=== PATIENT | female | born 1960 | race Caucasian/White ===

== ENCOUNTER 2020-05-26 02:49 | Emergency (ER) | payer OTHER ==
[~2020-05-26] VITALS: Ht 160 cm; Wt 68.0 kg
[~2020-05-26 02:49] MED LIST: GABA-532 PO; LURA40TA PO
--- NOTE | 2020-05-26 02:50 | NUR ---
PT AAOX4. BIBSELF C/O SI WITH PLAN TO RUN INTO TRAFFIC. DENEIS HI. PLACED IN GOWN, ON MONITOR, AND PULSE OX. VSS. PALCED IN BED 12, BELONINGS PLACED IN LOCKER. AWAITING MD FOR EVAL AND ORDERS.
--- NOTE | 2020-05-26 03:11 | NUR ---
URINE PROVIDED. SENT TO LAB.
--- NOTE | 2020-05-26 04:52 | NUR ---
Patient is resting comfortably in bed with eyes closed. Easily aroused. VSS
--- NOTE | 2020-05-26 06:12 | NUR ---
PT AWAKE, AMBULATED TO THE RESTROOM.
[2020-05-26] MEDS ORDERED: OLANZAPINE 5 MG TABLET PO ONE (06:30)
--- NOTE | 2020-05-26 07:42 | NUR ---
PATIENT IN BED ASLEEP, EASILY AROUSABLE BY VOICE. HOOKED TO MONITOR, VSS. SITTER AT BEDSIDE FOR SAFETY
--- NOTE | 2020-05-26 08:25 | NUR ---
CALLED EEG TECHNICIAN RACHAEL IS ON HER WAY DOWN.
[2020-05-26 08:26] LABS: CARBON DIOXIDE 28 mmol/L (21-32); CHLORIDE 99 mmol/L (98-107); POTASSIUM 3.3 mmol/L (3.5-5.1); SODIUM SERUM 134 mmol/L (136-145)
[2020-05-26 08:27] LABS: CALCIUM, SERUM 9.1 mg/dL (8.5-10.1); CREATININE 0.8 mg/dL (0.6-1.3); GLUCOSE 83 mg/dL (74-106); SALICYLATE < 0.2 mg/dL (2.8-20.0); UREA NITROGEN, BLOOD 23 mg/dL (7-18)
--- NOTE | 2020-05-26 08:36 | NUR ---
MAICO CONSULT: social worker assistant was called down to the ER to evaluate the pt as she came into the ER reporting suicidal ideation with a plan to jump in front of a car. Upon arrival, SW noted the pt was sitting on the edge of her bed, dressed in her clothing, carrying two plastic bags filled with her belongings, and carrying her crutches. Pt reported she was ready to leave. SW inquired about suicidal ideation immediately. Pt gave SW different answers ranging from, "I was last night, but I'm fine now. I will feel like killing myself tonight, or when I leave. I don't know. I want to jump in front of a car. I wanted to." SW inquired about safety planning and how the pt is planning to keep herself safe. Pt diverted the conversation by calling SW "nice." SW inquired about her current living situation. Pt reported she is currently homeless, living [place] the [place]. SW inquired about the way(s) pt needs her basic needs (food, clothing, group home). Pt diverted the conversation once again and stated, I smoke a lot of crack, so I dont really need to eat. SW inquired about voluntary psychiatric placement at [facility] to address her ongoing suicidal ideation. At this point, the pt stated to MAICO, Ill make a deal with you. I will go to the [facility] if I can go outside and smoke a cigarette. MAICO informed the pt that SW could not allow pt to go outside to smoke. At this point, the pt began to walk away towards the exit. MAICO informed ALENA Jenkins that the pt was not cleared to leave as she was endorsing suicidal ideation. The pt was redirected back to her bed by ALENA Jenkins and . The pt proceeded to lock herself in the restroom for approximately 10 minutes. Shortly after, pts sitter/CN A discovered the pt was smoking in the restroom. ALENA Jenkins instructed the pt to return to her bed. The pt became combative and was placed in two-point restraints. Her belonging were taken (bags of clothing, crutches) and stored. MAICO informed ALENA Jenkins that the on-call licensed clinician will be called for further evaluation and possible 5150 hold.
--- NOTE | 2020-05-26 09:36 | NUR ---
PATIENT IN BED ASLEEP, EASILY AROUSABLE BY VOICE. HOOKED TO MONITOR, VSS. SITTER AT BEDSIDE FOR SAFETY
--- NOTE | 2020-05-26 09:36 | NUR ---
MAICO NOTE: MAICO contacted scheduled on-call clinician, Wilda ([phone]) for psychiatric evaluation at possible 5151 hold for DTS at 0851. MAICO left a voicemail for Wilda. MAICO consulted with Curing Supervisor, MARTHA Mcleod. Per Shani, the pt is appropriate for [facility], if she is agreeable. Shani will accompany MAICO to re-evaluate the pt after 1000.
[2020-05-26] MEDS ORDERED: LORAZEPAM INJ 2 MG/ML VIAL IM ONE (10:00)
[2020-05-26] MEDS ORDERED: HALOPERIDOL LACTATE INJ 5 MG/ML VIAL IM ONE (10:00)
[2020-05-26] MEDS ORDERED: diphenhydrAMINE HCL 50 MG/ML VIAL IM ONE (10:00)
--- NOTE | 2020-05-26 10:09 | NUR ---
MAICO NOTE: MAICO and Construction Equipment Mechanic Helper, MARTHA Mcleod visited the pt. The pt remained in two-point restraints, but was visibly de-escalated. MAICO and Shani asked the pt if she was willing to go to [facility] voluntarily; pt agreed. MAICO will contact on-call electric vehicle electrician and cancel the evaluation request. MAICO informed ALENA Jenkins of the plan. MAICO will fax clinicals to [facility] Intake ([phone]).
--- NOTE | 2020-05-26 11:38 | NUR ---
SW NOTE: Clinicals sent to [facility] intake ([phone]) for voluntary inpatient psychiatric placement. Endorsed to ALENA Jenkins.
--- NOTE | 2020-05-26 12:16 | NUR ---
PROVIDED W FOOD TRAY, TOLERATING PO WELL
--- NOTE | 2020-05-26 12:36 | NUR ---
MAICO NOTE: MAICO received a call from [facility] at [facility] Intake ([phone]) confirming acceptance for the pt to [facility]. Dr. Dumont & Dr. Looney (Photo Lab Manager) Oliva VANEGAS for report. Please contact: [phone] Endorsed to ALENA Jenkins.
[2020-05-26 12:44] LABS: BASOPHILS % (AUTO) 0.3 % (0.0-2.0); EOSINOPHILS % (AUTO) 4.2 % (0.0-6.0); HEMATOCRIT 28 % (33-45); HEMOGLOBIN 8.6 g/dL (11.5-14.8); LYMPHOCYTES # (AUTO) 1.8 /CMM (0.8-4.8); LYMPHOCYTES % (AUTO) 21.8 % (20.0-44.0); MEAN CORPUSCULAR HGB CONC 31 g/dl (31.0-36.0); MEAN CORPUSCULAR VOLUME 63 fL (82-100); MONOCYTES # (AUTO) 0.8 /CMM (0.1-1.30); MONOCYTES % (AUTO) 9.9 % (2.0-12.0); NEUTROPHILS # (AUTO) 5.2 /CMM (1.8-8.9); NEUTROPHILS % (AUTO) 63.8 % (43.0-81.0); PLATELET COUNT (AUTO) 310 /CMM (150-450); RED BLOOD CELL COUNT(AUTO) 4.45 MIL/uL (4.0-5.2); WHITE BLOOD COUNT (AUTO) 8.2 K/uL (4.3-11.0)
--- NOTE | 2020-05-26 12:44 | NUR ---
received a call from [facility] at [facility] Intake ([phone]) confirming acceptance for the pt to [facility]. Dr. Dumont & Dr. Looney (Coal Conveyor Operator) Oliva VANEGAS for report. Please contact: [phone]
--- NOTE | 2020-05-26 12:46 | NUR ---
MAICO NOTE: [facility] homeless resources related to COVID-19, substance use resources, and behavioral health resources left in pt's chart along with the Homeless Patient Waiver for the pt to sign upon discharge and transfer to [facility]. Endorsed to Иван Huffman. Addendum: 05/26/20 at 1249 by LORELEI NINA Pt unable to sign the document at this time due to her being in two-point restraints, and sleeping due to medication(s) administered.
[2020-05-26 12:47] LABS: APPEARANCE,URINE SL CLOUDY (CLEAR); BILIRUBIN,URINE SMALL (NEGATIVE); BLOOD, URINE NEGATIVE Ery/uL (NEGATIVE); KETONES,URINE 15 (NEGATIVE); LEUKOCYTE ESTERASE ,URINE NEGATIVE (NEGATIVE); NITRITE, URINE NEGATIVE (NEGATIVE); PROTEIN,URINE TRACE mg/dl (NEGATIVE); UGLUCOSE NEGATIVE (NEGATIVE); UROBILINOGEN,URINE 0.2 EU/dL (0.2)
[2020-05-26 12:54] LABS: BACTERIA,URINE Few /HPF (None Seen); SQUAMOUS EPITHELIAL CELL,UR Moderate /HPF (None Seen)
[2020-05-26 12:55] LABS: COLOR,URINE DARK YELLO (YELLOW)
[2020-05-26 12:56] LABS: RBC,URINE 0-2 /HPF (0-2)
--- NOTE | 2020-05-26 14:08 | NUR ---
CALLED [id number] [phone] WILL CONTACT US WITH REF #[id number] ETA 45MINS [facility]. IF ANY ISSUES PLEASE CALL [phone]
--- NOTE | 2020-05-26 15:00 | NUR ---
Patient picked up by [facility] in stable condition. Clinicals provided to EMS to be provided to [facility].
[2020-05-26 15:01] VITALS: BP 122/86
== END 2020-05-26 15:19 ==
LOC: ER 02:49
DX: R45.851 Suicidal ideations (principal); I10 Essential (primary) hypertension; J44.9 Chronic obstructive pulmonary disease, unspecified; F32.9 Major depressive disorder, single episode, unspecified; F17.200 Nicotine dependence, unspecified, uncomplicated; Z59.0 Homelessness; Z79.899 Other long term (current) drug therapy
CPT/HCPCS: 36415; 80048; 80305; 80329; 81001; 85025; 87086; 96372 ×2; 99285; J1200; J1630; J2060; 81000-TC; G0480

== ENCOUNTER 2020-07-14 09:53 | Emergency (ER) | payer OTHER ==
[~2020-07-14] VITALS: Ht 149.9 cm; Wt 75.3 kg
--- NOTE | 2020-07-14 10:15 | NUR ---
FROM STREET, C/O DIFFICULTY BREATHING X1 WEEK. PT AAOX4, VSS. RR EVEN & UNLABORED. DENIES CP, DIZZINESS, N/V AT THIS TIME. PT SEEN & EVAL'D BY DR. RAI. WILL CONT TO MONITOR.
[2020-07-14] MEDS: IPRATROPIUM NEB FS 0.5 MG/2.5 ML AMPUL.NEB NEB ONE (10:25)
[2020-07-14] MEDS: ALBUTEROL FS 2.5 MG/3 ML VIAL.NEB NEB ONE (10:25)
--- NOTE | 2020-07-14 10:25 | NUR ---
PT GETTING BREATHING TX, RESP THERAPIST @ BS.
[2020-07-14] MEDS ORDERED: IPRATROPIUM NEB FS 0.5 MG/2.5 ML AMPUL.NEB ONE (10:32)
[2020-07-14] MEDS ORDERED: ALBUTEROL FS 2.5 MG/3 ML VIAL.NEB ONE (10:32)
--- NOTE | 2020-07-14 10:44 | NUR ---
RT HHN TX GIVEN. PATIENT AWAKE, ALERT, NO SOB REPORTED. ON ROOM AIR. POST TX PATIENTS BREATH SOUNDS HAD AN INCREASE AERATION. LIO TX WELL.
--- NOTE | 2020-07-14 11:50 | NUR ---
NICHOLE, ENVIRONMENTAL SERVICES COORDINATOR @ BS FOR EVAL.
--- NOTE | 2020-07-14 12:26 | NUR ---
Patient discharged to home in stable condition. Written and verbal after care instructions given. Patient verbalizes understanding of instruction.
[2020-07-14 12:27] VITALS: BP 148/89
--- NOTE | 2020-07-14 15:57 | NUR ---
Patient is a 59 year-old woman who asked to speak with this SW. Patient wanted a referral to [facility]. This SW conducted assessment to learn more about the patient and responses to questions needed for [facility].
--- NOTE | 2020-07-14 15:59 | NUR ---
This SW contacted [facility] option 7 and spoke with Marilin. This SW gave information necessary to make a profile for the patient. Patient was placed on the waitlist as there are no current rooms available. This SW to inform the patient about this and provide homeless resources for the meantime.
--- NOTE | 2020-07-14 16:00 | NUR ---
This SW informed the patient she was placed on the [facility] waitlist. Patient was happy that she had been placed on the waitlist. Patient provided number for contact for [facility] . Patient accepted homeless resources including: Substance Abuse resources provided included: [facility] Substance Abuse Self-Helpline ([facility]) ; [facility] [address] [facility]. [place] [id number] ; [facility] [place] [address] [facility] [address] ; [facility] [address] [facility] [id number] ; [facility] [address] [facility] [phone] ; [facility] [address] [facility] [id number] ; [facility] [address] [facility] [id number] ; [facility]stance Abuse Helpline([facility])-[facility] ; [facility] ; [facility] [place]; [facility] [place]; [facility] [place]; [facility] [place]; [place]; [facility] [place]; [facility]. [place]; Alcoholics Anonymous -[facility]V; Cf-Tcgl-Bmjtlij ; Marijuana Anonymous -[facility]; Narcotics Anonymous www.na.org. Year-round shelters : [facility] [address] [place] [address] ; [facility] [place] [address] [place] [address]; [place] [facility] [address] [place] [facility] [phone] Hygiene: [facility]: [address] [place] ; [facility] [address] [facility] ; [facility] [place] [address] [place] . Food Resources: [place] [facility] at [facility]- [address] [place]; Meet Each Need wit Dignity ([facility]) [address] [facility]. [place]; [facility] [address] [facility]; [facility] [address] [facility] [address] [place] [facility]. Mental Health resources provided: [facility] [address] [place] [address] ; [facility] [address] [facility] [address], [place] [address] ; Sabiha Draper [facility] [address] [place] [address] ; [facility] [address] [place], [place] [id number]
== END 2020-07-14 12:30 | disposition home or self-care (01) ==
LOC: ER 09:55
DX: J44.9 Chronic obstructive pulmonary disease, unspecified (principal); F17.210 Nicotine dependence, cigarettes, uncomplicated; I10 Essential (primary) hypertension; F32.9 Major depressive disorder, single episode, unspecified; Z59.0 Homelessness; Z88.8 Allergy status to other drugs, medicaments and biological substances